=== PATIENT | male | born 1965 | race Caucasian/White ===

== ENCOUNTER → 2025-02-12 16:17 | Outpatient (REF) | payer BC, SELFPAY | LOC: MRI 3T 16:17 | PROVIDERS: ATTENDING PHYSICIAN Family Medicine | DX: R97.20 Elevated prostate specific antigen [PSA] (principal) | CPT/HCPCS: 72197; A9575 ==

== ENCOUNTER 2025-05-18 22:08 | Emergency (ER) | payer BC, SELFPAY ==
[2025-05-18 22:10] VITALS: BP 158/111
[2025-05-18 22:26] VITALS: BMI 26.7
[2025-05-18 23:00] VITALS: BP 135/87
--- NOTE | 2025-05-18 23:03 | ED.GENMED ---
History of Present Illness
General
Chief Complaint: Male Genito-Urinary Symptoms
Source: patient
Exam Limitations: none
Time Seen by Provider: 05/18/25 23:02
Nursing documentation reviewed up to this point in time: agreed with
History of Present Illness
History of Present Illness:
The patient is a 59-year-old male with a history of urinary issues, who presents with worsening difficulty in urination and blood during self-catheterization. He reports that his symptoms began on Saturday, initially experiencing difficulty
urinating, which progressively worsened. He was evaluated by his urologist yesterday, who noted a lot of fluid and prescribed self-catheterization. However, the patient reports that self-catheterization has not provided relief. He describes trying
to urinate only two times a day, with little to no output, causing significant discomfort.
Today, the patient attempted self-catheterization again, and it became very difficult to insert the catheter, followed by significant bleeding. No fever, vomiting, or other symptoms have been reported.
The patients urologist is aware of the situation, and the plan includes inserting a Mueller catheter to relieve urinary retention and potentially evaluating the bladder for obstruction from an enlarged prostate or other causes. The patient has an
upcoming trip to [place] and a golf outing, and he has concerns about managing a catheter during these activities.
The patient denies use of blood thinners and is currently on Flomax and Finasteride.
Past History
Past History
ED Past Medical History: Other (Seasonal allergies)
Social History
Tobacco: Non-smoker
Alcohol: Occasional
Drug: None
Review of Systems
Review of Systems
Allergies reviewed?: Yes
All Other Systems: ROS reviewed and negative except as documented in HPI and ROS
Phy Exam
Physical Exam
Physical Exam:
GENERAL: Alert , in no apparent distress
EYE: pupils equal and reactive
NECK: Supple, no significant adenopathy.
ENT: o/p clr, mmm.
CARDIAC: Regular rate and rhythm .
LUNGS: Clear breath sounds bilaterally, no acute respiratory distress, no wheezes/rales/rhonchi
ABDOMEN:Vague distention to the suprapubic region of the abdomen, otherwise Soft, without focal tenderness, no r/g, no cvat
NEUROLOGICAL: Alert and oriented, no focal neuro deficits
SKIN: Warm and dry, skin intact.
MUSCULOSKELETAL: No edema, well perfused.
PSYCH: Normal and appropriate interaction.
Course
Orders/Labs/Results
Orders:
Orders
05/18/25 23:33
Mueller Placement- Treatment ONCE
Reason for insertion: Acute Retention
05/18/25 23:34
Urinalysis Reflex To Culture Urgent
Date Specimen was Collected: 05/19/25
Time Specimen was Collected: 00:03
05/19/25 00:06
Urine Microscopic Reflex Cult Urgent
Abnormal Lab Results
05/19/25
00:06
Ur Occult Blood Reflex 4+ A
(Negative)
Urine RBC >100 A /HPF
(0-2)
Urine Albumin (Reflex) 4+ A
(Neg - Trace)
Vital Signs
Initial and Last Documented VS:
Initial Vital Signs
Temp Pulse Resp BP Pulse Ox
97.9 F 69 17 158/111 97
05/18/25 22:10 05/18/25 22:10 05/18/25 22:10 05/18/25 22:10 05/18/25 22:10
Last Documented Vital Signs
Temp Pulse Resp BP Pulse Ox
97.9 F 69 17 149/98 95
05/18/25 22:10 05/18/25 22:10 05/18/25 22:10 05/19/25 00:00 05/19/25 00:30
MDM/Problems Addressed
MDM/Problems Addressed:
Acute:
- Urinary retention
- Blood during catheterization
- Difficulty with self-catheterization
- Insert a Mueller catheter to decompress the bladder and relieve retention.
- Instruct the patient on managing the catheter during travel to [place] and while attending a wedding.
- Arrange follow-up with the urologist for further evaluation and management, including determining if any surgical interventions or adjustments are needed based on the prostate condition.
- Monitor for any complications related to the Mueller catheter, such as infections or obstruction.
*Critical Care Note
Total Time (30-74mins, 75-104mins- exclusive of procedures): Not Applicable
ED Attending Note
-
Portions of this chart may have been created with voice recognition software.� Occasional wrong word or��sound alike� substitutions may have occurred due to the inherent limitations of voice recognition software.
Discharge Plan
Departure
Patient Disposition: Home (Routine Discharge)
Date of Disposition: 05/19/25
Time of Disposition: 00:50
Patient with high blood pressure during this ER visit?: No
Condition: Good
Covid-19: Not Applicable
Discharge Problem:
Acute retention of urine, Hematuria
Instructions: How to Care for Your Mueller Catheter, Male
Prescriptions:
No Action
fluticasone propionate 1 SPRAY spray,suspension
2 spray intranasal DAILY PRN (Reason: seasonal allergy)
Referrals:
Arnaud Lyle MD [Family Provider, Family Practice]
Silvano Sumner MD [Active, Urology]
Activity Restrictions/Additional Instructions:
You came to the emergency department today with concerns of urinary retention. Please follow-up closely with Dr. Sumner for ongoing care with your Mueller catheter. Return for any worsening, new or concerning symptoms.
Interventions
Interventions:
*Risk Screen - Suicide Last Done: 05/18/25 22:10
*General Assessment Last Done: 05/18/25 22:10
*Neglect/Abuse Screening Last Done: 05/18/25 22:10
*ED- Fall Risk Assessment Last Done: 05/18/25 22:26
*ED COVID-19 Vaccine History Last Done: 05/18/25 22:10
ED-Male Genitourinary Assessment Last Done: 05/18/25 22:26
Discharge Date and Time
Print Language: MOHAWK
[2025-05-19] VITALS: BP 149/98
[2025-05-19 00:21] LABS: Urine Albumin 4+ (Neg - Trace); Urine Bilirubin Negative (Negative); Urine Character Bloody (Clear); Urine Color Red; Urine Glucose Negative (Negative); Urine Ketone Negative (Negative); Urine Leukocyte Negative (Negative); Urine Nitrite Negative (Negative); Urine Occult Blood 4+ (Negative); Urine Specific Gravity 1.015 (<1.030); Urine Urobilinogen Negative (Neg - 1+)
[2025-05-19 00:31] LABS: Urine Red Blood Cell >100 /HPF (0-2)
--- NOTE | 2025-05-19 04:19 | DOWNTIME ---
Addendum entered by Rosa Marquez RN 05/19/25 15:25:
Correction: Downtime was 05/19/2025 from 0100 to 05/19/2025 at 0415.
Original Note:
There was a [employer] Downtime on 05/18/2025 from 0100 to 05/19/2025 at 0415. Downtime documentation of patient's care, including medication administrations, has been reconciled in the electronic record per guidelines. Refer to the
patient's paper chart under the miscellaneous tab to see printed paper medication records and downtime forms.
== END 2025-05-19 01:30 | disposition home or self-care (01) ==
LOC: EMR 22:08
PROVIDERS: Physician Assistant; EMERGENCY PHYSICIAN Student in an Organized Health Care Education/Training Program; FAMILY PHYSICIAN Family Medicine
DX: R33.9 Retention of urine, unspecified (principal); R31.9 Hematuria, unspecified
CPT/HCPCS: 51702; 99283; 81003; 81015